=== PATIENT | female | born 1955 | race Asian ===

== ENCOUNTER 2016-08-02 20:43 | Inpatient (IN) | payer BC ==
[~2016-08-02] VITALS: Ht 157.5 cm; Wt 68.9 kg
[2016-08-02] MEDS ORDERED: OPTIRAY 350 100 ML VIAL HMH IV ONE (20:44)
[2016-08-02] MEDS ORDERED: MORPHINE 4 MG/ML SYR ONE (23:17)
[2016-08-02] MEDS ORDERED: SODIUM CHLORIDE 0.9% 1,000 ML ONE (23:17)
[2016-08-02] MEDS ORDERED: ONDANSETRON 4 MG VIAL ONE (23:17)
[2016-08-03] MEDS ORDERED: CEFTRIAXONE 1 GM VIAL ONE (00:10)
[2016-08-03] MEDS ORDERED: SODIUM CHLORIDE 0.9% 100 ML IV ONE (00:10)
[2016-08-03] MEDS ORDERED: DILAUDID 1 MG/ML AMP IV PRN (02:00)
[2016-08-03] MEDS ORDERED: SALINE FLUSH 10 ML FLUSH PRN (02:00)
[2016-08-03] MEDS ORDERED: BISACODYL EC 5 MG TAB PO PRN (02:00)
[2016-08-03] MEDS ORDERED: ALU/MAG/SIM 30 ML UDC PO PRN (02:00)
[2016-08-03] MEDS ORDERED: MAG HYDROX 30 ML UDC PO PRN (02:00)
[2016-08-03] MEDS ORDERED: BISACODYL 10 MG SUPP RECTAL PRN (02:00)
[2016-08-03] MEDS ORDERED: KCL 20 MEQ/15 ML UDC PO ONE (02:30)
[2016-08-03] MEDS ORDERED: DILAUDID 1 MG/ML AMP ONE (03:37)
[2016-08-03 04:47] VITALS: BP_SYST 151; RESP 20; TEMP 98.3; Ht 157.5 cm; Wt 68.9 kg
[2016-08-03 05:11] VITALS: RESP 18
[2016-08-03] MEDS: LACT RINGERS 1,000 ML IV SCH ×2 (05:48→17:41)
[2016-08-03] MEDS: SODIUM CHLORIDE 0.9% FLUSH BAG 500 ML IV SCH (06:00)
[2016-08-03] MEDS: PIPERACIL/TAZO 3.375GM/50ML 50 ML IV SCH ×4 (06:11→23:43)
[2016-08-03] MEDS: SALINE FLUSH 10 ML FLUSH SCH ×2 (08:00→20:00)
[2016-08-03 08:29] VITALS: BP_SYST 140; RESP 16; TEMP 97.8
[2016-08-03] MEDS: NICOTINE 7 MG/24 HR TRANSDERM SCH (09:30)
[2016-08-03] MEDS: ENOXAPARIN 30 MG/0.3 ML SYR SUBQ SCH (09:31)
[2016-08-03] MEDS: FAMOTIDINE 20 MG INJ IV SCH ×2 (09:31→21:12)
[2016-08-03 12:07] VITALS: BP_SYST 151; RESP 16; TEMP 97.9
[2016-08-03] MEDS ORDERED: MISSING DOSE XX ONE (12:10)
[2016-08-03] MEDS: ASPIRIN EC 325 MG TAB PO SCH ×2 (13:05→16:50)
[2016-08-03 15:53] VITALS: BP_SYST 136; TEMP 97.9
[2016-08-03] MEDS: CLOPIDOGREL 75 MG TAB PO SCH (17:41)
[2016-08-03] MEDS: DOCUSATE SOD 100 MG CAP PO SCH (21:12)
[2016-08-03] MEDS: ZOLPIDEM 5 MG TAB PO SCH (21:12)
[2016-08-03] MEDS: ESCITALOPRAM 10 MG TAB PO SCH (21:12)
[2016-08-04 00:05] VITALS: BP_SYST 154; RESP 18; TEMP 99.9
[2016-08-04] MEDS: ACETAMINOPHEN 325 MG TAB PO PRN ×2 (00:30→08:40)
[2016-08-04] MEDS: PIPERACIL/TAZO 3.375GM/50ML 50 ML IV SCH ×3 (05:28→18:05)
[2016-08-04] MEDS: LACT RINGERS 1,000 ML IV SCH (05:29)
[2016-08-04] MEDS: SODIUM CHLORIDE 0.9% FLUSH BAG 500 ML IV SCH (05:29)
[2016-08-04 08:06] VITALS: BP_SYST 148; RESP 18; TEMP 98.7
[2016-08-04] MEDS: DOCUSATE SOD 100 MG CAP PO SCH ×2 (08:40→20:25)
[2016-08-04] MEDS: CLOPIDOGREL 75 MG TAB PO SCH (08:40)
[2016-08-04] MEDS: ESCITALOPRAM 10 MG TAB PO SCH (08:40)
[2016-08-04] MEDS: SALINE FLUSH 10 ML FLUSH SCH ×2 (08:41→20:00)
[2016-08-04] MEDS: FAMOTIDINE 20 MG INJ IV SCH ×2 (08:41→20:28)
[2016-08-04] MEDS: NICOTINE 7 MG/24 HR TRANSDERM SCH (08:41)
[2016-08-04] MEDS: ENOXAPARIN 30 MG/0.3 ML SYR SUBQ SCH (08:42)
[2016-08-04] MEDS: KCL CR 10 MEQ CAP PO SCH (11:28)
[2016-08-04 11:34] VITALS: BP_SYST 161; RESP 18; TEMP 97.5
[2016-08-04 17:00] VITALS: BP_SYST 152; RESP 16; TEMP 97.9
[2016-08-04] MEDS: ZOLPIDEM 5 MG TAB PO SCH (20:32)
[2016-08-04 20:40] VITALS: BP_SYST 184; RESP 18; TEMP 98.2
[2016-08-04 23:37] VITALS: BP_SYST 172; RESP 18; TEMP 98.4
[2016-08-05] VITALS (7 sets, daily range): BP systolic 135–186; RESP 17–20; TEMP 97.9–99
[2016-08-05] MEDS: PIPERACIL/TAZO 3.375GM/50ML 50 ML IV SCH ×4 (01:00→18:14)
[2016-08-05] MEDS: ACETAMINOPHEN 325 MG TAB PO PRN (02:07)
[2016-08-05] MEDS: SODIUM CHLORIDE 0.9% FLUSH BAG 500 ML IV SCH (05:24)
[2016-08-05] MEDS: DOCUSATE SOD 100 MG CAP PO SCH ×2 (08:25→19:28)
[2016-08-05] MEDS: SALINE FLUSH 10 ML FLUSH SCH ×2 (08:31→22:29)
[2016-08-05] MEDS: FAMOTIDINE 20 MG INJ IV SCH ×2 (08:31→22:29)
[2016-08-05] MEDS: KCL CR 10 MEQ CAP PO SCH (08:32)
[2016-08-05] MEDS: NICOTINE 7 MG/24 HR TRANSDERM SCH (08:32)
[2016-08-05] MEDS: ESCITALOPRAM 10 MG TAB PO SCH (08:32)
[2016-08-05] MEDS: CLOPIDOGREL 75 MG TAB PO SCH (08:32)
[2016-08-05] MEDS: ENOXAPARIN 30 MG/0.3 ML SYR SUBQ SCH (08:33)
[2016-08-05] MEDS ORDERED: MISSING DOSE XX ONE (16:10)
[2016-08-05] MEDS: LOPERAMIDE 2 MG CAPSULE PO SCH ×2 (17:55→22:28)
[2016-08-05] MEDS: amLODIPine 10 MG TAB PO SCH (17:56)
[2016-08-05] MEDS ORDERED: ALPRAZOLAM 0.25 MG TAB PO PRN (18:45)
[2016-08-05] MEDS ORDERED: ALPRAZOLAM 1 MG TAB ONE (18:46)
[2016-08-05] MEDS: ZOLPIDEM 5 MG TAB PO SCH (22:28)
[2016-08-06 00:10] VITALS: BP_SYST 138; RESP 17; TEMP 99.9
[2016-08-06] MEDS: PIPERACIL/TAZO 3.375GM/50ML 50 ML IV SCH ×3 (00:47→11:52)
[2016-08-06 02:42] VITALS: BP_SYST 132; RESP 18; TEMP 98.8
[2016-08-06] MEDS: ACETAMINOPHEN 325 MG TAB PO PRN (02:49)
[2016-08-06] MEDS: SODIUM CHLORIDE 0.9% FLUSH BAG 500 ML IV SCH (05:34)
[2016-08-06 07:54] VITALS: BP_SYST 122; RESP 18; TEMP 98.8
[2016-08-06] MEDS: LOPERAMIDE 2 MG CAPSULE PO SCH (09:00)
[2016-08-06] MEDS ORDERED: KCL CR 10 MEQ CAP PO SCH (09:00)
[2016-08-06] MEDS: FAMOTIDINE 20 MG INJ IV SCH (09:36)
[2016-08-06] MEDS: CLOPIDOGREL 75 MG TAB PO SCH (09:36)
[2016-08-06] MEDS: SALINE FLUSH 10 ML FLUSH SCH (09:36)
[2016-08-06] MEDS: ESCITALOPRAM 10 MG TAB PO SCH (09:37)
[2016-08-06] MEDS: KCL CR 10 MEQ CAP PO SCH (09:37)
[2016-08-06] MEDS: amLODIPine 10 MG TAB PO SCH (09:37)
[2016-08-06] MEDS: NICOTINE 7 MG/24 HR TRANSDERM SCH (09:38)
[2016-08-06] MEDS: ENOXAPARIN 30 MG/0.3 ML SYR SUBQ SCH (09:39)
[2016-08-06] MEDS: DOCUSATE SOD 100 MG CAP PO SCH (09:40)
[2016-08-06 11:25] VITALS: BP_SYST 122; RESP 18; TEMP 98.8
== END 2016-08-06 12:30 | disposition home or self-care (01) | DRG 690 ==
LOC: ENRESERVDT → ENRESERVTM → ER 20:43 → ENPENDDIS 08-03 02:35 → EMR 08-03 02:35 → PCU2 08-03 04:25
PROVIDERS: ADMIT Hospitalist; ATTEND Hospitalist
DX: N10 Acute pyelonephritis (principal); D73.5 Infarction of spleen; I10 Essential (primary) hypertension; E86.0 Dehydration; E87.6 Hypokalemia; R19.7 Diarrhea, unspecified; R79.89 Other specified abnormal findings of blood chemistry; F41.9 Anxiety disorder, unspecified; Z90.49 Acquired absence of other specified parts of digestive tract
CPT/HCPCS: 36415; 74177; 76770; 80048; 80053; 80061; 81001; 81241; 82378; 83090; 83690; 85025; 85300; 85303; 85306; 85610; 85613; 85652; 85730; 85732; 86038; 86141; 86147; 86160; 86225; 86431; 87040; 87088; 87493; 87804; 94799; 96361; 96365; 96367; 99223; 99233; 99239